=== PATIENT | female | born 1950 | race Caucasian/White ===

== ENCOUNTER 2017-09-24 12:13 | Outpatient (CLI) | payer MEDICARE ==
[2017-09-24 13:30] LABS: Hemoglobin 15.4 g/dL (12.0-16.0); Mean Corpuscular HGB CONC 33.4 g/dL (32.0-36.0); Mean Corpuscular Hemoglobin 30.4 pg (27.0-31.0); Mean Corpuscular Volume 91.1 fl (81.0-99.0); Mean Platelet Volume 8.2 fL (7.4-10.4); Platelet Count 197 thou/uL (130-400); RBC Distribution Width 11.9 % (11.5-14.5); Red Blood Cell (RBC) Count 5.05 mill/uL (4.20-5.40)
[2017-09-24 13:33] LABS: PTT 34.9 SEC (22.9-36.1); Prothrombin Time 12.7 SEC (12.0-14.7)
[2017-09-24 13:52] LABS: ALT (SGPT) 19 U/L (8-55); AST (SGOT) 16 U/L (5-34); Albumin 4.4 g/dL (3.4-4.8); Alkaline Phosphatase 101 U/L (40-150); Anion Gap 9 mmol/L (10-20); BUN (Urea Nitrogen) 16 mg/dL (9.8-20.1); Bilirubin, Total 0.5 mg/dL (0.2-1.2); Calc. Creatinine Clearance 0 mL/min (70-130); Calcium 9.4 mg/dL (7.8-10.44); Carbon Dioxide 28 mmol/L (23-31); Chloride 106 mmol/L (98-107); Estimated GFR-MDRD 60; Globulin 2.5 g/dL (2.4-3.5); Glucose 110 mg/dL (80-115); Protein, Total 6.9 g/dL (6.0-8.3); Sodium 139 mmol/L (136-145)
== END 2017-09-24 12:14 | disposition home or self-care (01) ==
LOC: LABBT 12:13
PROVIDERS: ATTEND Internal Medicine Cardiovascular Disease
DX: Z01.818 Encounter for other preprocedural examination (principal); I35.0 Nonrheumatic aortic (valve) stenosis
CPT/HCPCS: 80053; 85027; 85610; 85730; 93005; 93010

== ENCOUNTER 2017-09-25 06:02 | Day surgery (SDC) | payer MEDICARE ==
[2017-09-24 12:34] VITALS: BMI 32.5
[2017-09-25] MEDS ORDERED: Lidocaine 1% (PF) 30 ML VIAL ONE (06:28)
[2017-09-25 07:15] LABS: Cardiac Risk 3.4 (Less than 4.5)
[2017-09-25] MEDS ORDERED: Midazolam HCl 2 mg/2 ml Vial ONE (07:35)
[2017-09-25] MEDS ORDERED: Fentanyl 100 MCG/2 ML VIAL ONE (07:36)
[2017-09-25] MEDS ORDERED: Heparin 10,000 UNITS/1 ML VIAL ONE (08:04)
[2017-09-25] MEDS ORDERED: hydrALAZINE 20 MG/ML VIAL ONE (08:38)
[2017-09-25] MEDS ORDERED: Ondansetron HCl/PF 4 MG/2 ML Vial ONE (10:45)
[2017-09-25] MEDS ORDERED: Iopamidol 370 76% 50 ML VIAL FS ONE (12:21)
[2017-09-25] MEDS ORDERED: Iopamidol 370 76% 100 ML VIAL ONE (12:21)
[2017-09-25] MEDS ORDERED: Mag-Al 1200 mg/1200 mg/30 ML UDCUP ONE (13:18)
[2017-09-25] MEDS ORDERED: Milk Of Magnesia 30 ML UDCUP PO SCH (16:15)
[2017-09-25] MEDS ORDERED: TICAGRELOR 90 MG TABLET PO SCH (21:00)
--- NOTE | 2017-10-08 22:49 | EKG ---
Test Reason : POST STENTS X 2-OM Blood Pressure : / mmHG Vent. Rate : 069 BPM Atrial Rate : 069 BPM P-R Int : 192 ms QRS Dur : 102 ms QT Int : 426 ms P-R-T Axes : 072 076 099 degrees QTc Int : 456 ms Normal sinus rhythm Anteroseptal infarct (cited on or before 24-SEP-2017) Abnormal ECG When compared with ECG of 24-SEP-2017 12:08, (Unconfirmed) No significant change was found Confirmed by Joshua DAVIS ([id number]) on 10/08/2017 10:48:55 PM Referred By: PAULINE Confirmed By:Joshua DAVIS
== END 2017-09-25 14:16 | disposition home or self-care (01) ==
LOC: CCL 06:02
PROVIDERS: ATTEND Internal Medicine Cardiovascular Disease
PROC: 027135Z Dilation of Coronary Artery, Two Arteries with Two Drug-eluting Intraluminal Devices, Percutaneous Approach (ICD-10-PCS; principal; 2017-09-25)
DX: I25.10 Atherosclerotic heart disease of native coronary artery without angina pectoris (principal); I35.0 Nonrheumatic aortic (valve) stenosis; I10 Essential (primary) hypertension; Z95.1 Presence of aortocoronary bypass graft; Z87.891 Personal history of nicotine dependence; Z79.82 Long term (current) use of aspirin; Z79.899 Other long term (current) drug therapy
CPT/HCPCS: 80061; 85347 ×2; 93005; 93460; 93567; 93798; C1725; C1769 ×2; C1874; C9600; 92928; 99152; 99153; J0360; J1644; J2001; J2250; J2405; J3010

== ENCOUNTER 2017-10-02 08:01 | Outpatient (CLI) | payer MEDICARE ==
--- NOTE | 2017-10-07 08:34 | PFT ---
PATIENT HISTORY: HEIGHT: 64 IN WEIGHT: 190 SMOKER: QUIT HOW LON YRS PACKS PER DAY .5 PRODUCTIVE COUGH: LUNG DISEASE: PHYSICIAN INTERPRETATION FINAL REPORT: Framer comments patient and good effort and cooperation FVC 2.24 (79%), FEV1 1.80 (89%), FEV1/FVC 0.80. TLC 3.36 (70%), FRC 1.32(47%), RV 1.12 (58%). Diffusion 17.47 (98%). There is a mild reduction to the FVC. The FEV1 falls within the lower limits of normal. The ratio was normal. TLC is mildly impaired. Residual volume is moderately impaired. Diffusion capacity falls within the normal limits. There are no changes compared to prior study. IMPRESSION: These pulmonary function studies are most consistent with mild restrictive lung disease with normal gas exchange. There is minimal flattening to the inspiratory limb of the flow volume loop, which is likely not of any clinical concern as the MVV is nearly normal. Body habitus may be contributing to these findings, but chest wall abnormalities and musculoskeletal weakness should be considered within the differential. Framer: [employer] Attendant: KAITLIN ABEL
== END 2017-10-02 08:02 | disposition home or self-care (01) ==
LOC: CP 08:01
PROVIDERS: ATTEND Internal Medicine Cardiovascular Disease
DX: I35.0 Nonrheumatic aortic (valve) stenosis (principal)
CPT/HCPCS: 94010; 94727; 94729

== ENCOUNTER 2017-10-06 16:32 | Emergency (ER) | payer MEDICARE ==
[2017-10-06 17:07] LABS: #Eosinphils 0.3 thou/uL (0.0-0.7); #Lymphocytes 1.7 thou/uL (1.20-3.40); #Monocytes 0.6 thou/uL (0.11-0.59); #Neutrophils 6.7 thou/uL (1.40-6.50); %Basophils 0.3 % (0.0-1.0); %Eosinophils 3.3 % (0.0-10.0); %Lymphocytes 17.9 % (21.0-51.0); %Monocytes 6.7 % (0.0-10.0); %Neutrophils 71.9 % (42.0-75.0); Hemoglobin 14.8 g/dL (12.0-16.0); Mean Corpuscular HGB CONC 34.4 g/dL (32.0-36.0); Mean Corpuscular Hemoglobin 31.2 pg (27.0-31.0); Mean Corpuscular Volume 90.6 fl (81.0-99.0); Mean Platelet Volume 8.2 fL (7.4-10.4); Platelet Count 220 thou/uL (130-400); RBC Distribution Width 12.3 % (11.5-14.5); Red Blood Cell (RBC) Count 4.75 mill/uL (4.20-5.40); White Blood Cell (WBC) Count 9.3 thou/uL (4.8-10.8)
[2017-10-06 17:32] LABS: ALT (SGPT) 18 U/L (8-55); AST (SGOT) 14 U/L (5-34); Albumin 4.2 g/dL (3.4-4.8); Alkaline Phosphatase 98 U/L (40-150); Anion Gap 14 mmol/L (10-20); BUN (Urea Nitrogen) 16 mg/dL (9.8-20.1); Bilirubin, Total 0.4 mg/dL (0.2-1.2); CK (CPK) 55 U/L (29-168); Calc. Creatinine Clearance 0 mL/min (70-130); Calcium 9.4 mg/dL (7.8-10.44); Carbon Dioxide 21 mmol/L (23-31); Chloride 109 mmol/L (98-107); Estimated GFR-MDRD 66; Globulin 2.8 g/dL (2.4-3.5); Glucose 117 mg/dL (80-115); Potassium 3.6 mmol/L (3.5-5.1); Sodium 140 mmol/L (136-145)
--- NOTE | 2017-10-06 17:32 | RAD ---
FRONTAL VIEW CHEST: INDICATIONS: Chest pain. COMPARISON: 06/09/2015 FINDINGS: There are postoperative changes of the chest again seen. The cardiomediastinal silhouette is promine nt. No lobar consolidation or effusion. No discrete pneumothorax. IMPRESSION: Stable postoperative chest. POS: [facility]
[2017-10-06 17:36] LABS: CKMB 0.9 ng/mL (0-6.6); Troponin I Less than 0.010 ng/mL (< 0.028)
[2017-10-06] MEDS ORDERED: Nitroglycerin 2% Ointment 1 INCH/1 GM Packet ONE (17:45)
--- NOTE | 2017-12-13 14:35 | EKG ---
Test Reason : Blood Pressure : / mmHG Vent. Rate : 048 BPM Atrial Rate : 048 BPM P-R Int : 188 ms QRS Dur : 096 ms QT Int : 478 ms P-R-T Axes : 041 032 106 degrees QTc Int : 427 ms Marked sinus bradycardia Anterior infarct , age undetermined Abnormal ECG When compared with ECG of APR 2017 No changes Confirmed by KATJA SAINZ, CESAR ([id number]), assistant editor FADI AMADOR ([id number]) on 12/13/2017 2:34:39 PM Referred By: Confirmed By:CESAR HIGHTOWER MD
== END 2017-10-06 18:59 | disposition home or self-care (01) ==
LOC: ERS 16:32
DX: I20.8 Other forms of angina pectoris (principal); E78.5 Hyperlipidemia, unspecified; I10 Essential (primary) hypertension; F32.9 Major depressive disorder, single episode, unspecified; Z79.82 Long term (current) use of aspirin; Z79.899 Other long term (current) drug therapy
CPT/HCPCS: 36415; 71045; 80053; 82553; 83880; 84484; 85025; 93005

== ENCOUNTER 2018-01-15 17:20 | Emergency (ER) | payer MEDICARE ==
[2018-01-15] MEDS ORDERED: HYDROcodone/Acetaminophen 10/325 mg Tablet ONE (17:57)
--- NOTE | 2018-01-15 19:37 | RAD ---
THREE VIEWS LUMBAR SPINE 01/15/18 HISTORY: Lower back pain with pain radiating down legs. Injury. COMPARISON: None available. FINDINGS: There are five nonribbearing lumbar type vertebral bodies. The vertebral body heights are within norm al limits. There is mild grade I anterolisthesis of L3 on L4. There are facet degenerative changes se en in the lower lumbar spine. Osteophytes are seen anteriorly at multiple levels. No fracture is iden tified. Vascular calcifications are seen in the abdominal aorta. IMPRESSION: 1. Grade I anterolisthesis of L3 on L4 likely attributable to prominent facet degenerative bush es at level. 2. No fracture is seen. 3. Multilevel degenerative changes. 4. Vascular calcifications. POS: [facility]
== END 2018-01-15 18:34 | disposition home or self-care (01) ==
LOC: ERS 17:20
DX: M54.42 Lumbago with sciatica, left side (principal); E78.5 Hyperlipidemia, unspecified; I10 Essential (primary) hypertension; Z79.899 Other long term (current) drug therapy; Z79.82 Long term (current) use of aspirin; Z91.81 History of falling
CPT/HCPCS: 72100

== ENCOUNTER 2018-06-26 09:28 | Outpatient (CLI) | payer MEDICARE ==
--- NOTE | 2018-06-26 14:19 | MMO ---
BILATERAL DIGITAL SCREENING MAMMOGRAMS 06/26/18 HISTORY: 68-year-old female presents for digital screening mammography. COMPARISON: 05/07/16. This patient's mammogram is interpreted with the assistance of computer aided detection. Scattered areas of parenchymal density asymmetry are noted bilaterally. There are a few typically be nign calcifications. Stable somewhat global asymmetry in the outer upper aspect of the right breast. IMPRESSION: BIRADS 2: Benign Finding(s) Routine annual screening mammography (for women over age 40). POS: [facility]
== END 2018-06-26 09:29 | disposition home or self-care (01) ==
LOC: SCSMAMMO 09:28
PROVIDERS: ATTEND Nurse Practitioner
DX: Z12.31 Encounter for screening mammogram for malignant neoplasm of breast (principal)
CPT/HCPCS: 77067

== ENCOUNTER 2019-08-16 13:28 | Outpatient (CLI) | payer MEDICARE ==
--- NOTE | 2019-08-16 15:25 | BD ---
DEXA BONE DENSITY STUDY: Date: 08/16/2019 HISTORY: Postmenopausal. FINDINGS: Lumbar Spine: BMD (g/cm2) L1 0.959 T-Score: -0.3 L2 1.003 T-Score: -0.2 L3 1.089 T-Score: +0.0 L4 1.052 T-Score: -0.1 Total 1.029 T-Score: -0.2 Left Femoral Neck: 0.834 T-Score: -0.1 Total Femur: 0.919 T-Score: -0.2 IMPRESSION: Normal bone mineral density of the lumbar spine and left femoral neck. POS: [facility]
--- NOTE | 2019-08-16 15:38 | CT ---
CT chest noncontrast low-dose screening. HISTORY: Tobacco abuse. FINDINGS: Lungs are well-inflated. Mild scarring within each lung, most pronounced at the left anteri or lung base. Calcified granulomata are consistent with healed granulomatous disease. There is a tiny nonspecific noncalcified nodule at the left lateral costophrenic angle. No pleural fluid or pneumothorax. There is calcification within the coronary arteries and other arter ial structures. Aortic valve stent in place. There are degenerative changes of the thoracic spine. A tiny pocket of gas is present along the media l margin of the T9-T10 left neural foramen. IMPRESSION: No acute pulmonary abnormalities are demonstrated. Lung RADS category 2. Benign. Suggest routine screening. Chronic-type lung findings as detailed above. Atherosclerosis. Gas within a leftward T9-T10 intervertebral disc herniation. Clinical correlation regarding the left T9 dermatome is required.
== END 2019-08-16 13:29 | disposition home or self-care (01) ==
LOC: BICMAMMO 13:28 → CT 13:29
PROVIDERS: ATTEND Nurse Practitioner
DX: Z12.2 Encounter for screening for malignant neoplasm of respiratory organs (principal); Z87.891 Personal history of nicotine dependence; Z13.820 Encounter for screening for osteoporosis; I25.10 Atherosclerotic heart disease of native coronary artery without angina pectoris; I70.8 Atherosclerosis of other arteries; J98.4 Other disorders of lung; J84.10 Pulmonary fibrosis, unspecified; R91.1 Solitary pulmonary nodule; M51.24 Other intervertebral disc displacement, thoracic region; Z78.0 Asymptomatic menopausal state
CPT/HCPCS: 77080; G0297

== ENCOUNTER 2020-11-17 08:46 | Outpatient (CLI) | payer MEDICARE | END 2020-11-17 08:47 | disposition home or self-care (01) | LOC: BICCT 08:46 | PROVIDERS: ATTEND Nurse Practitioner | DX: Z12.2 Encounter for screening for malignant neoplasm of respiratory organs (principal); Z87.891 Personal history of nicotine dependence | CPT/HCPCS: 71271 ==

== ENCOUNTER 2020-11-17 09:23 | Outpatient (CLI) | payer MEDICARE | END 2020-11-17 09:24 | disposition home or self-care (01) | LOC: BICRAD 09:23 | PROVIDERS: ATTEND Nurse Practitioner Family | DX: M54.5 Low back pain (principal); M43.16 Spondylolisthesis, lumbar region; M47.816 Spondylosis without myelopathy or radiculopathy, lumbar region | CPT/HCPCS: 72110 ==

== ENCOUNTER 2020-12-04 10:13 | Outpatient (CLI) | payer MEDICARE | END 2020-12-04 10:14 | disposition home or self-care (01) | LOC: BICMRI 10:13 | PROVIDERS: ATTEND Nurse Practitioner Family | DX: M47.26 Other spondylosis with radiculopathy, lumbar region (principal); M47.27 Other spondylosis with radiculopathy, lumbosacral region | CPT/HCPCS: 72148 ==

== ENCOUNTER 2020-12-11 11:25 | Outpatient (CLI) | payer MEDICARE | END 2020-12-11 11:26 | disposition home or self-care (01) | LOC: BICRAD 11:25 | PROVIDERS: ATTEND Specialist | DX: M43.16 Spondylolisthesis, lumbar region (principal); M43.17 Spondylolisthesis, lumbosacral region; M47.816 Spondylosis without myelopathy or radiculopathy, lumbar region | CPT/HCPCS: 72120 ==

== ENCOUNTER 2021-11-19 08:48 | Outpatient (CLI) | payer MEDICARE | END 2021-11-19 08:49 | disposition home or self-care (01) | LOC: BICCT 08:48 | PROVIDERS: ATTEND Nurse Practitioner | DX: Z12.2 Encounter for screening for malignant neoplasm of respiratory organs (principal); Z87.891 Personal history of nicotine dependence | CPT/HCPCS: 71271 ==